=== PATIENT | male | born 1980 | race Caucasian/White ===

== ENCOUNTER 2019-11-21 19:27 | Emergency (ER) | payer MEDICAID ==
[~2019-11-21] VITALS: Ht 167.6 cm; Wt 65.0 kg
[~2019-11-21 19:27] MED LIST: OXYC-134 PO
[2019-11-21 19:30] VITALS: BP 144/85
[2019-11-21] MEDS ORDERED: ALBU8HFA PO (19:54)
[2019-11-21] MEDS ORDERED: BENZ-16 PO (19:54)
[2019-11-21] MEDS ORDERED: AZIT-72 PO (19:54)
== END 2019-11-21 20:11 | disposition home or self-care (01) ==
LOC: ER 19:27
DX: J20.9 Acute bronchitis, unspecified (principal); Z79.2 Long term (current) use of antibiotics; Z79.899 Other long term (current) drug therapy
CPT/HCPCS: 99283

== ENCOUNTER 2020-11-23 13:58 | Emergency (ER) | payer MEDICAID, OTHER ==
[~2020-11-23] VITALS: Ht 165.1 cm; Wt 65.5 kg
[2020-11-23 14:16] VITALS: BP 130/88
[2020-11-23] MEDS ORDERED: ALBU8.5H8 INH (16:20)
[2020-11-23] MEDS ORDERED: PANT-47 PO (16:20)
[2020-11-23] MEDS ORDERED: BENZ-16 PO (16:20)
[2020-11-23] MEDS ORDERED: AZIT-63 PO (16:20)
== END 2020-11-23 16:32 | disposition home or self-care (01) ==
LOC: ER 13:58
DX: J20.9 Acute bronchitis, unspecified (principal); R05 Cough; M54.89 Other dorsalgia; R09.89 Other specified symptoms and signs involving the circulatory and respiratory systems; F17.200 Nicotine dependence, unspecified, uncomplicated; Z79.2 Long term (current) use of antibiotics; Z79.899 Other long term (current) drug therapy
CPT/HCPCS: 99283